=== PATIENT | female | born 1950 | race Caucasian/White ===

== ENCOUNTER → 2016-09-11 | Outpatient (CLI) | payer OTHER ==
--- NOTE | 2016-09-11 11:50 | DX ---
Right calcaneus series 2 views 1122 hours. History: Assess healing of stress fracture. Findings: Comparison to July 22, 2011. There is sclerosis involving the posterior body of the right calcaneus compatible with healing fractu re or stress fracture. There is subtle disruption of the cortex along the posterior superior margin o f the fracture. Mineralization is otherwise normal. Small calcaneal spurs are evident. Soft tissues a re unremarkable. Boehler's angle is normal. Impression: 1. Sclerosis associated with healing fracture or stress fracture posterior body of the calcaneus.
== END ==
LOC: BMCIMAGING 11:25
PROVIDERS: ATTEND Podiatrist Foot & Ankle Surgery
DX: M84.374D Stress fracture, right foot, subsequent encounter for fracture with routine healing (principal)

== ENCOUNTER → 2017-04-11 | Outpatient (CLI) | payer OTHER | LOC: FIMAGING 13:23 | PROVIDERS: ATTEND Internal Medicine Hematology & Oncology | DX: Z12.31 Encounter for screening mammogram for malignant neoplasm of breast (principal) | CPT/HCPCS: G0202 ==

== ENCOUNTER → 2017-07-09 | Outpatient (CLI) | payer OTHER | LOC: BMCIMAGING 14:18 → EDSTATUS 14:19 | PROVIDERS: ATTEND Podiatrist Foot & Ankle Surgery | DX: M79.672 Pain in left foot (principal); M77.32 Calcaneal spur, left foot ==

== ENCOUNTER → 2018-05-29 | Outpatient (CLI) | payer OTHER | LOC: FIMAGING 12:41 | PROVIDERS: ATTEND Internal Medicine Hematology & Oncology | DX: Z12.31 Encounter for screening mammogram for malignant neoplasm of breast (principal); Z85.3 Personal history of malignant neoplasm of breast ==